=== PATIENT | female | born 1995 | race Caucasian/White ===

== ENCOUNTER 2017-06-10 16:17 | Emergency (ER) | payer MEDICAID, OTHER ==
[~2017-06-10] VITALS: Ht 162.6 cm; Wt 127.5 kg
[~2017-06-10 16:17] MED LIST: IBUP-2213 PO
[2017-06-10 16:21] VITALS: BP 142/87
--- NOTE | 2017-06-10 16:27 | NUR ---
PT AMBULATED TO BED 3
--- NOTE | 2017-06-10 17:12 | NUR ---
patient ambulated to and from bathroom with steady gait. Pt back to rm 1 without incident.
[2017-06-10] MEDS ORDERED: NACL 0.9% 1,000 ML IV ONE (17:50)
[2017-06-10 18:30] LABS: BASOPHILS # (AUTO) 0.3 K/uL (0.00-0.22); BASOPHILS % (AUTO) 2.1 % (0.0-2.0); EOSINOPHILS # (AUTO) 0.1 K/uL (0-0.4); EOSINOPHILS % (AUTO) 0.7 % (0.0-4.0); HEMATOCRIT 40.2 % (36-48); HEMOGLOBIN 12.9 g/dL (12.0-16.0); LYMPHOCYTES # (AUTO) 3.5 K/uL (2.5-16.5); MEAN CORPUSCULAR HEMOGLOBIN 25 pg (27-31); MEAN CORPUSCULAR HGB CONC 32 g/dL (33-37); MEAN CORPUSCULAR VOLUME 78.2 fL (80-94); MONOCYTES # (AUTO) 0.6 K/uL (0.8-1.0); MONOCYTES % (AUTO) 4.4 % (1.7-9.3); NEUTROPHILS # (AUTO) 10.2 K/uL (1.8-7.7); NEUTROPHILS % (AUTO) 68.8 % (42.2-75.2); PLATELET COUNT (AUTO) 400 K/uL (140-450); RED BLOOD CELL COUNT(AUTO) 5.14 MIL/uL (4.20-5.40); RED CELL DISTRIBUTION WIDTH 14.3 % (11.6-13.7); WHITE BLOOD COUNT (AUTO) 14.7 K/uL (4.5-11.0)
--- NOTE | 2017-06-10 18:32 | NUR ---
Patient laying supine in gurney. Patient with no complaints. Pt is aox4. RR are even and unlabored. No acute distress. Will continue to monitor.
[2017-06-10 18:47] LABS: ANION GAP 13.7 (8-16); CARBON DIOXIDE 25.2 mmol/L (21-32); CREATININE 0.5 mg/dL (0.6-1.3); POTASSIUM 3.9 mmol/L (3.5-5.1)
[2017-06-10 18:54] LABS: ALBUMIN 3.7 g/dL (3.4-5.0); TOTAL BILIRUBIN 0.2 mg/dL (0.0-1.0)
--- NOTE | 2017-06-10 19:34 | NUR ---
Note robert in EDM - 06/10/17 at 1937 by PEDRO Patient will be admitted to care of [facility]. Admited to [facility]. Will go to room 111. Belongings list completed. Bedside report to Sophia JEAN-BAPTISTE.
--- NOTE | 2017-06-10 19:41 | NUR ---
Pt report given to Cecile darden AND Yue Darden. Transfer of care at this time.
[2017-06-10 19:45] LABS: APPEARANCE,URINE CLEAR (CLEAR); BILIRUBIN,URINE NEGATIVE (NEGATIVE); BLOOD, URINE 2+ (NEGATIVE); COLOR,URINE YELLOW (YELLOW); LEUKOCYTE ESTERASE ,URINE TRACE (NEGATIVE); NITRITE, URINE NEGATIVE (NEGATIVE); UGLUCOSE NEGATIVE (NEGATIVE)
[2017-06-10 19:49] LABS: RBC,URINE 3-10 (FEW) /HPF (0-5); WBC,URINE 0-5 (RARE) /HPF (0-5)
--- NOTE | 2017-06-10 20:29 | NUR ---
pt resting in bed, denies any pain. vss. pt awating for ct results. no s/s of distress noted at the moment.
[2017-06-10 20:59] VITALS: BP 132/72
--- NOTE | 2017-06-10 20:59 | NUR ---
Patient discharged with v/s stable BY DR. TUCKER. Written and verbal after care instructions given and explained BY ER MD. Patient alert, oriented and verbalized understanding of instructions. Ambulatory with steady gait. All questions addressed prior to discharge. ID band removed. Patient advised to follow up with PMD. Rx of MACROBID given. Patient educated on indication of medication including possible reaction and side effects. Opportunity to ask questions provided and answered.
== END 2017-06-10 20:59 | disposition home or self-care (01) ==
LOC: MED 16:17
DX: N39.0 Urinary tract infection, site not specified (principal)
CPT/HCPCS: 36415; 74176; 80053; 81001; 82150; 83690; 85025; 96360; 96361; 99285; J7030; 81025

== ENCOUNTER 2017-07-21 18:09 | Emergency (ER) | payer MEDICAID ==
[~2017-07-21] VITALS: Ht 160 cm; Wt 127.7 kg
[2017-07-21 18:31] VITALS: BP 137/74
--- NOTE | 2017-07-21 18:53 | NUR ---
PT TAKEN TO BED 6.
--- NOTE | 2017-07-21 19:10 | NUR ---
21Y F BIB FAMILY C/O SOB SINCE FRIDAY MORNING; PT STATED PAIN IS MID CHEST STERNAL IN LOCATION, /, NON RADIAITING, INTERMITTENT. PT DENIEST ANY N/V/D AT THE MOMENT. PT AAOX4 BREATHING IS UNLABORED AND EVEN. PT CONNECTED TO MONITOR. ER MD DR HINES MADE AWARE.
--- NOTE | 2017-07-21 19:55 | NUR ---
Patient being evaluated by physician at bedside.
[2017-07-21 20:12] LABS: BASOPHILS % (AUTO) 0.3 % (0.0-2.0); EOSINOPHILS # (AUTO) 0.1 K/uL (0-0.4); HEMATOCRIT 39.8 % (36-48); LYMPHOCYTES # (AUTO) 3.6 K/uL (2.5-16.5); LYMPHOCYTES % (AUTO) 27.9 % (20.5-51.1); MEAN CORPUSCULAR HEMOGLOBIN 26 pg (27-31); MEAN CORPUSCULAR HGB CONC 33 g/dL (33-37); MEAN CORPUSCULAR VOLUME 78.9 fL (80-94); MONOCYTES # (AUTO) 0.8 K/uL (0.8-1.0); MONOCYTES % (AUTO) 5.9 % (1.7-9.3); NEUTROPHILS # (AUTO) 8.3 K/uL (1.8-7.7); NEUTROPHILS % (AUTO) 64.9 % (42.2-75.2); PLATELET COUNT (AUTO) 377 K/uL (140-450); RED BLOOD CELL COUNT(AUTO) 5.04 MIL/uL (4.20-5.40); RED CELL DISTRIBUTION WIDTH 15.5 % (11.6-13.7); WHITE BLOOD COUNT (AUTO) 12.8 K/uL (4.5-11.0)
[2017-07-21 20:28] LABS: ALBUMIN 3.7 g/dL (3.4-5.0); ANION GAP 12.7 (8-16); CARBON DIOXIDE 29.1 mmol/L (21-32); CREATININE 0.6 mg/dL (0.6-1.3); POTASSIUM 3.8 mmol/L (3.5-5.1); TOTAL BILIRUBIN 0.2 mg/dL (0.0-1.0)
[2017-07-21 20:35] LABS: PROTHROMBIN TIME 10.5 secs (10.8-13.4)
[2017-07-21 22:57] VITALS: BP 108/62
== END 2017-07-21 22:57 | disposition home or self-care (01) ==
LOC: MED 18:09
DX: R60.9 Edema, unspecified (principal); R07.89 Other chest pain; Z79.899 Other long term (current) drug therapy
CPT/HCPCS: 36415; 71045; 80053; 81002; 81025; 84484; 85025; 85379; 85610; 85730; 93005; 99285